=== PATIENT | male | born 1980 | race Caucasian/White ===

== ENCOUNTER 2020-06-03 20:07 | Emergency (ER) | payer MEDICARE, SELFPAY ==
[2020-06-03 20:10] VITALS: BP 131/89; PULSE 90; RESP 16; TEMP 36.4; O2SAT 97; BMI 30.9
[2020-06-03 20:49] VITALS: BP 127/87; PULSE 77; RESP 80; O2SAT 97
--- NOTE | 2020-06-03 21:58 | EKG12_ITS ---
Test Reason : DIZZINESS Blood Pressure : / mmHG Vent. Rate : 068 BPM Atrial Rate : 068 BPM P-R Int : 154 ms QRS Dur : 084 ms QT Int : 408 ms P-R-T Axes : 046 072 058 degrees QTc Int : 433 ms Normal sinus rhythm Normal ECG Confirmed by KELSIE SIMS, ELMA ([id number]), food expeditor OLAMIDE BOYD ([id number]) on 06/05/2020 2:41:03 PM Referred By: No Primary Care Physician Confirmed By:ELMA IGLESIAS MD
--- NOTE | 2020-06-03 21:58 | CT_ITS ---
STUDY: CT BRAIN WITHOUT CONTRAST REASON FOR EXAM: Male, 39 years old. CONFUSION,DIZZINESS AND DOUBLE VISION -- HX:DIABETES,HTN,HLD RADIATION DOSAGE (If Supplied By Facility): CTDIvol = ( 44.99 ) mGy, DLP = ( 812.98 ) mGycm TECHNIQUE: Transaxial CT imaging of the brain was performed without administration of intravenous contrast material. Individualized dose optimization techniques were used for this CT. COMPARISON: No relevant priors. FINDINGS: Normal soft tissue structures. Normal calvarium. Normal size ventricles and extra-axial spaces for the patient''s age. Normal white matter tracts of the cerebral hemispheres. Normal basal ganglia and thalami. Normal brainstem. Normal cerebellum. There is no intracranial hemorrhage. There are no findings of an acute ischemic infarction. Normal visualized paranasal sinuses. CT/Brain/Head without Contrast IMPRESSION: Normal unenhanced CT scan of the brain. Electronically Signed: Agapito Sage MD at 0:24 EDT , Service support ,
--- NOTE | 2020-06-03 21:59 | ED.DCSUM_ITS ---
History of Present Illness Chief Complaint: Dizziness Informant: Patient, Significant Other Onset: Month(s) - several Narrative: Patient presents with multiple complaints. He states he has felt weak all over with unintentional weight loss and occasional trouble breathing that is vaguely described for several months. In the last 2 or 3 days, he has had episodes of lightheadedness, periods of disorientation that he describes his not realizing where he is or what he was just doing, that do not last for long periods of time and wax and wane but no jose confusion like not knowing who he was with her who he is, etc. Also having flashes of light and other visual disturbances in both eyes, no specific visual field, brief and intermittent. No eye pain associated with this. states that several times he has woken up from sleep with slurred speech, numb tongue, and a droopy left lower face that lasts for hours before they go away. No peripheral extremity neurologic symptoms when those symptoms are present. No bowel or bladder dysfunction. No chest pain or palpitations in his chest, no GI symptoms. States that he is concerned he may have Yessy Gehrig's disease. He is a type II diabetic that states he was admitted for DKA at one point, that was not within the past couple weeks or months. He states today he has had polyuria and polydipsia although his blood sugars have been normal. He states he drank 2 gallons of water today because I am urinat ing so much, in order to do stay hydrated. He also states that 2 days ago when all of these other symptoms started, he was seen at [facility] in [place], which is a tertiary care center, and had a lot of tests done and was discharged to follow-up with somebody after the weekend. He states all the symptoms are a little worse today hence coming here. Additionally, the patient states that he has recently discontinued his metformin because his blood sugars have been normal. Past Medical History - Allergies and Home Meds Allergies/Adverse Reactions: Allergies Penicillins Allergy (Verified 06/03/20 20:09) Anaphylaxis risperidone [From Risperdal] Allergy (Verified 06/03/20 20:09) NEEDS FOLLOW-UP Primary Care Physician: Monik Maria,Out of [Primary Care Provider] - Keep Ric appointment Past Medical History: None Lives: Spouse/ Significant Other Smoking Status: Former smoker Alcohol: None Drugs: None Review of Systems General: Reports: Malaise, Weight loss. Denies: Chills, Fever, Sweats Eyes: Reports: Visual changes - bilaterally, - - no eye pain. Denies: Diplopia ENT: Denies: Rhinorrhea, Sore throat Cardiovascular: Denies: Chest pain, Palpitations Respiratory: Reports: Dyspnea. Denies: Cough, Orthopnea Gastrointestinal: Denies: Abdominal pain, Nausea, Vomiting, Diarrhea, Melena, Hematochezia Genitourinary: Denies: Dysuria, Hematuria, Frequency Musculoskeletal: Denies: Neck pain, Back pain, Swelling, Extremity Pain Skin: Denies: Rash, Wounds Neurological: Reports: Headache - off and on x 3 mos; not present currently, - - left facial droop intemittently and slurred speech-- see HPI. Denies: Weakness - nothing focal, Numbness Physical Exam Vital Signs/Narrative: Vital Signs Temp Pulse Resp BP Pulse Ox 06/03/20 20:49 77 80 H 127/87 H 97 06/03/20 20:10 97.5 F L 90 16 131/89 H 97 NIH Stroke Scale/Score (NIHSS) from [employer] on 06/03/2020 All calculations should be rechecked by clinician prior to use RESULT SUMMARY: 0 points NIH Stroke Scale INPUTS: 1A: Level of consciousness ?> 0 = Alert; keenly responsive 1B: Ask month and age ?> 0 = Both questions right 1C: 'Blink eyes' & 'squeeze hands' ?> 0 = Performs both tasks 2: Horizontal extraocular movements ?> 0 = Normal 3: Visual appiah ?> 0 = No visual loss 4: Facial palsy ?> 0 = Normal symmetry 5A: Left arm motor drift ?> 0 = No drift for 10 seconds 5B: Right arm motor drift ?> 0 = No drift for 10 seconds 6A: Left leg motor drift ?> 0 = No drift for 5 seconds 6B: Right leg motor drift ?> 0 = No drift for 5 seconds 7: Limb Ataxia ?> 0 = No ataxia 8: Sensation ?> 0 = Normal; no sensory loss 9: Language/aphasia ?> 0 = Normal; no aphasia 10: Dysarthria ?> 0 = Normal 11: Extinction/inattention ?> 0 = No abnormality Inital Vital Signs reviewed: Yes General: Well nourished, Well developed, Obese, No Acute Distress Head: Normocephalic, Atraumatic Eyes: Perrl, EOMI ENT: Moist mucous membranes, No rhinorrhea Neck: Supple, Nontender, No lymphadenopathy, No JVD Cardiovascular: Regular rate, Regular rhythm, No murmurs. Negative for: Tachycardia Respiratory: No distress, CTA bilaterally, Chest nontender Abdomen: Soft, Nontender, Nondistended, Normal bowel sounds Back: Nontender, Normal Inspection. Negative for: CVA tenderness Extremities: Nontender, No edema. Negative for: Calf Tenderness Skin: Normal color, No rash, No Trauma Neurological: Alert, Oriented x3, Cranial nerves II-XII grossly intact, Normal Strength, Normal Sensation, Normal Gait, - - Normal rhibwh-cu-voxi and qvvb-[id number] bilaterally Psychological: Normal affect, Normal Mood Diagnostic/Tx/Re-eval Laboratory Tests 06/03/20 06/03/20 Range/Units 22:40 22:40 WBC 10.3 (4.4-11.0) K/mm3 RBC 4.86 (4.6-6.2) M/mm3 Hgb 15.3 (13.0-16.5) g/dL Hct 46.4 (40-54) % MCV 95.5 H (80-94) fL MCH 31.5 (27.0-32.0) pg MCHC 33.0 (32-36) g/dL RDW Std Deviation 49.2 H (35.1-43.9) fl RDW Coeff of Sim 13.9 (11.6-14.6) % Plt Count 177 (150-450) K/mm3 MPV 10.7 (6.2-12.0) fl Immature Gran % (Auto) 0.300 (0.0-0.9) % Neut % (Auto) 58.5 (47-70) % Lymph % (Auto) 29.8 (19-41) % [place] % (Auto) 7.8 (0-10) % Eos % (Auto) 2.9 (0-5) % Baso % (Auto) 0.7 (0-1) % Absolute Neuts (auto) 6.0 (2.0-7.7) X10^3/uL Absolute Lymphs (auto) 3.07 (0.83-4.51) X10^3/uL Nucleated RBC % 0 (0-5) % Sodium 143 (136-145) mmol/L Potassium 3.8 (3.5-5.1) mmol/L Chloride 108 H (98-107) mmol/L Carbon Dioxide 28.0 (21.0-32.0) mmol/L Anion Gap 7 (5-15) BUN 10 (7-18) mg/dL Creatinine 0.82 (0.70-1.30) mg/dL Estim Creat Clear Calc 139.39 ml/min Est GFR (MDRD) Af Amer 135 (>60) mL/min Est GFR (MDRD) Non-Af 111 (>60) mL/min BUN/Creatinine Ratio 12.2 (10-20) RATIO Glucose 87 (74-106) mg/dL Calcium 8.9 (8.5-10.1) mg/dL Total Bilirubin 0.40 (0.20-1.00) mg/dL AST 13 L (15-37) U/L ALT 29 (16-61) U/L Alkaline Phosphatase 70 (45-117) U/L Total Protein 7.3 (6.4-8.2) g/dL Albumin 3.9 (3.2-5.0) g/dL Globulin 3.4 (2.2-4.2) g/dL Albumin/Globulin Ratio 1.1 (0.9-2.4) RATIO - Rhythm Strip Rhythm Strip: Sinus Rhythm Rate: 68 Ectopy: None - EKG Initial EKG Interpretation: Sinus Rhythm, No Acute Injury Pattern - normal EKG - Medical Decision Making At this time patient is going for imaging and he has not provided urine specimen yet. I sent out a COVID-19 swab, which does not need to be run emergently here. That will take 3-5 days to return. His blood pressures have been very normal, averaging between 100-110 systolic, arguing against intracranial hypertension. Certainly central nervous system neurologic disorders such as Yessy Gehrig's disease, MS, and other disorders are in the differential diagnosis, however the patient presents at nighttime when film laboratory technician is not here, and if his CT is negative, I feel he can safely be discharged home to follow-up at his appointment that he already has a couple days away from now. He is walking without any difficulty and has a normal neurologic exam at this time, and is not disoriented. I advised him that he will need to continue taking his metformin, that it will not cause him to become hypoglycemic, and he understands that. If his testing is negative, again he will be discharged, and the results of the urinalysis chest x-ray and CT of the head are checked out to the oncoming physician for review. Patient and his are comfortable with that plan. ED Disposition - Plan for ED Patient: Disposition: Home or Assisted Living Diagnosis: Visual disturbance, Generalized weakness, Lightheadedness Instructions: ED Dizziness [facility], ED Weakness [facility] Referrals: [facility] Doctor,Out of [Primary Care Provider] - Keep Ric appointment
[2020-06-03] MEDS: 0.9% Normal Saline 1,000 ML 1000 ML IV (22:45)
[2020-06-03 22:48] VITALS: BP 119/94; PULSE 71; RESP 16; O2SAT 98
[2020-06-03 23:03] LABS: Absolute Lymphocyte Count 3.07 X10^3/uL (0.83-4.51); Basophil# 0.07 X10^3/uL; Basophil% 0.7 % (0-1); Eosinophils% 2.9 % (0-5); Hematocrit 46.4 % (40-54); Hemoglobin 15.3 g/dL (13.0-16.5); Lymphocyte # 3.07 X10^3/ul (4.0); Lymphocyte % 29.8 % (19-41); Mean Corpuscular Hgb 31.5 pg (27.0-32.0); Mean Corpuscular Volume 95.5 fL (80-94); Mean Platelet Vol. 10.7 fl (6.2-12.0); Monocyte% 7.8 % (0-10); NRBC Flagged by Analyzer 0 % (0-5); Neutrophil # 6.03 X10^3/uL (2.7-7.7); Neutrophil % 58.5 % (47-70); Platelet Count 177 K/mm3 (150-450); RBC Distribution Width CV 13.9 % (11.6-14.6); RBC Distribution Width SD 49.2 fl (35.1-43.9); Red Blood Count 4.86 M/mm3 (4.6-6.2); White Blood Count 10.3 K/mm3 (4.4-11.0)
[2020-06-03 23:19] LABS: ALB/GLOB Ratio 1.1 RATIO (0.9-2.4); AST(SGOT) 13 U/L (15-37); Alanine Aminotransfer ALT/SGPT 29 U/L (16-61); Albumin, Serum 3.9 g/dL (3.2-5.0); Alkaline Phosphatase 70 U/L (45-117); Anion Gap 7 (5-15); BUN 10 mg/dL (7-18); BUN/Creat Ratio 12.2 RATIO (10-20); Calcium,Total 8.9 mg/dL (8.5-10.1); Chloride 108 mmol/L (98-107); Creatinine, Serum 0.82 mg/dL (0.70-1.30); EST Glomerular Filtration Rate 111 mL/min (>60); Est Glom Filt Rate - Afr Amer 135 mL/min (>60); Estimated Creatinine Clearance 139.39 ml/min; Globulin 3.4 g/dL (2.2-4.2); Glucose 87 mg/dL (74-106); Potassium 3.8 mmol/L (3.5-5.1); Protein, Total 7.3 g/dL (6.4-8.2); Sodium Level 143 mmol/L (136-145)
--- NOTE | 2020-06-03 23:40 | RAD_ITS ---
STUDY: X-RAY CHEST REASON FOR EXAM: Male, 39 years old. HEAD PRESSURE, SOB, DIZZINESS, COUGH, HEADACHES X 3 MONTHS. TECHNIQUE: Single AP portable view of the chest. COMPARISON: None. FINDINGS: The lungs are clear and expanded. There is no demonstrated pleural abnormality. Normal size heart. Normal mediastinum and mukesh. Normal visualized pulmonary arteries. Normal visualized aortic arch and descending thoracic aorta. Normal visualized thoracic spine. Normal visualized ribs, clavicles, and shoulders. There is no demonstrated abnormality of the visualized soft tissue structures of the upper abdomen. RAD/Chest 1 View (Portable) IMPRESSION: Normal x-ray examination of the chest. Electronically Signed: Agapito Sage MD at 1:48 EDT , Service support ,
[2020-06-04] VITALS: BP 113/99; PULSE 73; RESP 13; O2SAT 96
[2020-06-04 00:45] LABS: Bacteria 0 SEEN /hpf (None Seen); Mucous, Urine 0 SEEN /hpf (<or=2+); Red Blood Cells-Urine 0 SEEN /hpf (0-5); Squamous Epithelial Cells - UA 0 SEEN /hpf (0-5); White Blood Cells 0 SEEN /hpf (0-5)
[2020-06-04 00:56] LABS: Color, Urine Yellow (Yellow); Glucose, Dipstick Normal (Normal); Ketone-Dipstick Negative (Negative); Leukocyte Esterase-Dipstick Negative /ul (Negative); Nitrite-Dipstick Negative (Negative); Occult Blood-Urine Negative /ul (Negative); Protein-Dipstick Negative (Negative); Specific Gravity, Urine 1.005 (1.002-1.030); Urine Bilirubin Dipstick Negative (Negative); Urine Clarity Clear (Clear); Urine Urobilinogen Normal (Normal)
[2020-06-04 02:20] VITALS: BP 113/83; PULSE 77; RESP 16; O2SAT 98
== END 2020-06-04 02:20 | disposition home or self-care (01) ==
PROVIDERS: Emergency Provider Emergency Medicine
DX: H53.9 Unspecified visual disturbance (principal); R53.1 Weakness; R42 Dizziness and giddiness; R06.00 Dyspnea, unspecified; E11.9 Type 2 diabetes mellitus without complications; R63.4 Abnormal weight loss; E66.9 Obesity, unspecified; Z79.84 Long term (current) use of oral hypoglycemic drugs; Z87.891 Personal history of nicotine dependence
CPT/HCPCS: 70450; 71045; 80053; 81001; 85025; 87635; 93005; 94799; 96360; 96361; 99283; J7030; U0003